=== PATIENT | female | born 1970 | race African-American/Black ===

== ENCOUNTER 2016-10-24 06:00 | Inpatient (IN) | payer MEDICARE, OTHER ==
--- NOTE | ~2016-10-24 | DS ---
Unit #: [id number] #: [id number] Patient: MICHAEL BAGLEY [id number] [address] [place], [place] [address] [id number] MR#: [id number] NAME: MICHAEL BAGLEY ROOM: 460 Age: 46 Sex: F Admission Date: 10/24/2016 : 1970 Discharge Date: 10/26/2016 Attending Physician: Jeffrey Aj M.D. Primary Care Physician: Joleen Snowden M.D. DISCHARGE SUMMARY ADMITTING DIAGNOSIS Left knee osteoarthritis. DISCHARGE DIAGNOSIS Left knee osteoarthritis. HOSPITAL COURSE On 10/24/2016 Ms. Bagley underwent a left total knee arthroplasty. She tolerated the procedure well. She was transported to the fourth floor, where she underwent physical therapy, medical management and anticoagulation therapy. She is doing well and is ready to be discharged. DISCHARGE CONDITION Stable. DISPOSITION Discharge home with home health. DISCHARGE MEDICATIONS 1. Finley 10/325 mg. 2. Coumadin 7.5 mg p.o. daily. FOLLOWUP/INSTRUCTIONS 1. Ms. Bagley is going to be discharged home with home health. 2. The patient is on Coumadin for DVT prophylaxis. PT/INR is to be drawn every Monday and . Please call the results to [phone] or fax to [phone], attention Aug. 3. Skin celsa are to be discontinued two weeks postoperative. Please apply Steri-Strips 1/4 inch apart. 4. White RAKESH hose are to be worn during the day and can be removed in the evening. 5. The patient can shower in one week and can drive after seen by Dr. Aj at the six-weeks postoperative appointment. 6. Physical therapy is to be done for active range of motion, strengthening and progressive ambulation. 7. The patient is on a CPM machine. This should be done twice a day for two hours and set at 0 to 80 degrees, increase 10 degrees of flexion daily. 8. Follow-up appointment with Dr. Aj is in six weeks. Please call our office for that appointment date and time. Dictated by... Nino PageAChristopheC. for Unit #: [id number] #: [id number] Patient: BAGLEY,ANQUINETTJudy Aj M.D. YANE/gz TD: 10/28/2016 08:04 JOB #: [id number] DISCHARGE SUMMARY X Francia Toth DISCHARGE SUMMARY
--- NOTE | ~2016-10-24 | BMI ---
[facility] Nutrition Therapy DATE: 10/25/16 Patient: MICHAEL MENDOZA Physician: PER Address: [address] [place] [address] Room/Bed: [address] [place] [address], Zip: [place] [address] Admit Date: 10/24/16 Date of : [birth year] Height: 4 11.5 Weight: 247 112.2 HIGH BMI NOTE: DX: No new H&P available; 46 y/o female admitted with OA left knee ANTHROPOMETRICS: Ht: 59.5", Wt: 112.2 kg, BMI: 49 DIET: Regular INTERVENTION: Restricted diet, meds/fluids per MD RECOMMENDATIONS: Consider changing diet to healthy heart to promote a gradual weight loss towards a healthy BMI range. Add consistent carb restriction if patient has hx of DM. Respectfully, Patrizia Rodriguez RD, LD Food and Nutritional Services [facility] cc: client file
--- NOTE | ~2016-10-24 | OR ---
Unit #: [id number] #: [id number] Patient: MICHAEL MENDOZA [id number] [address] [place], [place] [address] [id number] MR#: [id number] NAME: MICHAEL MENDOZA ROOM: [facility] Date of Procedure: 10/24/2016 Admission Date: 10/24/2016 Surgeon: Jeffrey Aj M.D. : 1970 Attending Physician: Jeffrey Aj M.D. Primary Care Physician: Joleen Snowden M.D. OPERATIVE REPORT PREOPERATIVE DIAGNOSIS Primary localized osteoarthritis of left knee. POSTOPERATIVE DIAGNOSIS Primary localized osteoarthritis of left knee. PROCEDURE PERFORMED Left total knee. ASSISTANTS Francia Toth . ANESTHESIA Adductor canal block plus general. ESTIMATED BLOOD LOSS 100 mL. INDICATIONS FOR PROCEDURE This is a 46-year-old with severe pain in the left knee. She has had pain for months. This got progressively worse. X-rays show [id number]. She has tried injections and they DESCRIPTION OF PROCEDURE The patient was brought to the holding room, given an adductor canal block and 2 g of Kefzol. Kefzol will be continued postop, but discontinued within 23 hours the start time of surgery. The patient was brought back to the operating room, given a general anesthetic. Tourniquet was placed around the left thigh. The left leg was prepped and draped in a sterile fashion. Tourniquet was inflated to 250. A straight anterior skin incision was made and the subcutaneous dissected away. Medial arthrotomy performed. Patella was slid to the side. Osteophytes were removed from the femur. An intramedullary guide was used and a 6-degree valgus cut was made on the distal femur. The femur was sized at a 2.5. The anterior-posterior cutting block was applied. Rotation was checked in the knee. Anterior posterior cuts were made along with the chamfer cuts. Proximal tibial cut was made using a 0-degree cutting block. It was sized at a 2. Any posterior condylar osteophytes were removed and the remaining meniscal fragments debrided. Posterior capsule and periosteum were injected with ropivacaine mixture and after this was done, the trial femur was applied. The trial tibia was applied with an 8 insert. The knee came to full extension and good stability in extension and flexion. Rotation Unit #: [id number] #: [id number] Patient: MENDOZA,ANQUINETTE of the tibia was marked and the external alignment guide showed appropriate alignment of the limb. The patella was grasped with 2 towel clips. It measured 20 mm thick, cut smooth at 13, and a 35 patella was the appropriate size. Three drill holes were made. Trial patella applied and it tracked properly. We then removed all the trials, used the drill and punch for the tibial tray. The knee was irrigated and dried while the cement was mixed and then all 3 components were cemented simultaneously. Once again, it was a size 2 tray, size 2.5 femur cruciate retaining and 35 patella from the [employer] Knee System. After the cement hardened, it was judged that the 8 insert was the appropriate thickness, so this was opened and applied. The tourniquet was released. Hemostasis was obtained and the wound was irrigated with a dilute Betadine solution. The rest of the ropivacaine mixture was injected and the wound was closed using the 0 Ethibond in the arthrotomy, 0 and 2-0 Vicryl in the subcutaneous, and celsa in the skin. Sterile dressing applied and the general anesthetic reversed. procurement assistant, Francia Toth was present throughout the entire case. Dictated by... Juanito Davis/dina TD: 10/24/2016 20:01 JOB #: [id number] OPERATIVE REPORT X Jeffrey Aj MD X PROCEDURE OPERATIVE NOTE
[~2016-10-24 06:00] MED LIST: ADVAIR 115-21 INH; ADVAIR HFA 115-12 GM; ALBUTEROL20 ml; ALDACTONE100 MG PO; HYDROCHLOROTHIA25 MG PO; K-DUR20 ME2 PO; LACTULOSE10 G/15 ML; LASIX PO; SPIRIVA18 MCG INH; VOLTAREN75 MG PO
[2016-10-24 06:54] LABS: URINE SOURCE CLEAN CATCH
[2016-10-24 07:05] LABS: URINE APPEARANCE CLOUDY; URINE BILIRUBIN NEG (NEG); URINE BLOOD 2+ (NEG); URINE COLOR YELLOW; URINE GLUCOSE NEG (NEG); URINE KETONE NEG (NEG); URINE LEUKOCYTE ESTERASE NEG (NEG); URINE NITRATE NEG (NEG); URINE PROTEIN NEG (NEG); URINE SPECIFIC GRAVITY 1.026 (1.003-1.035)
[2016-10-24 07:08] LABS: CULTURE INDICATED? YES; URINE BACTERIA AUWI 1+ (NEGATIVE); URINE SQUAMOUS EPITHELIAL CELL MOD /[HPF]
[2016-10-24 07:24] LABS: PROTHROMBIN TIME (PATIENT) 10.7 SECONDS (9.6-11.5)
[2016-10-24] MEDS ORDERED: FISH OIL 1,001000 M1 PO (09:02)
[2016-10-24] MEDS ORDERED: ESTRACE0.5 MG PO (09:03)
[2016-10-24] MEDS ORDERED: FLONASE 0.05% N16 G1 (09:03)
[2016-10-24] MEDS ORDERED: VITAMIN D350000 UNIT PO (09:04)
[2016-10-24] MEDS ORDERED: PHENTERMINE HCL30 MG PO (09:05)
[2016-10-24] MEDS ORDERED: CLARITIN10 M2 PO (14:04)
[2016-10-24] MEDS ORDERED: LIPITOR40 MG PO (14:11)
[2016-10-25 03:32] LABS: BASOPHIL% 0.2 % (0-2.5); HEMATOCRIT 35.5 % (35.0-45.0); HEMOGLOBIN 11.5 gm/dL (12.0-16.0); LYMPHOCYTE# 1.3 X10e3 (1.0-3.5); MEAN CELL VOLUME 98.7 FL (83-96); MEAN CORPUSCULAR HGB CONC 32.5 g/dL (30-36); MONOCYTE% 6.2 % (3.0-12.0); NEUTROPHIL# 14.2 X10e3 (1.5-7.1); NEUTROPHIL% 85.6 % (40-75); PLATELET COUNT 297 X10e3 (140-420); RED CELL DISTRIBUTION WIDTH 14.2 % (11.0-15.5); WHITE BLOOD COUNT 16.6 X10e3 (4.0-10.5)
[2016-10-25 03:42] LABS: DIFF IND NO
[2016-10-25 03:45] LABS: INR 1.2; PROTHROMBIN TIME (PATIENT) 13.1 SECONDS (9.6-11.5)
[2016-10-25 04:03] LABS: BLOOD UREA NITROGEN 12 mg/dL (9-23); BUN/CREATININE RATIO 13.33; CALCIUM SERUM 9.2 mg/dL (8.4-10.2); CARBON DIOXIDE 29 mmol/L (22-31); CHLORIDE 104 mmol/L (100-111); CREATININE SERUM 0.9 mg/dL (0.6-1.4); GLOM FILT RATE Estimated ABOVE60 mL/min (>60); GLUCOSE FASTING 114 mg/dL (70-110); POTASSIUM 4.3 mmol/L (3.5-5.1); SODIUM 140 mmol/L (135-145)
[2016-10-25 04:56] LABS: ANISOCYTOSIS SL; PLATELET ESTIMATE NORMAL (NORMAL)
[2016-10-26 04:21] LABS: HEMATOCRIT 34.1 % (35.0-45.0); HEMOGLOBIN 11.2 gm/dL (12.0-16.0); MEAN CORPUSCULAR HEMOGLOBIN 32.1 PG (28-34); MEAN CORPUSCULAR HGB CONC 32.8 g/dL (30-36); MEAN PLATELET VOLUME 8.3 FL (6.5-11.5); RED BLOOD COUNT 3.48 X10e (3.90-5.30); RED CELL DISTRIBUTION WIDTH 14.1 % (11.0-15.5); WHITE BLOOD COUNT 14.8 X10e3 (4.0-10.5)
[2016-10-26 04:35] LABS: INR 1.4; PROTHROMBIN TIME (PATIENT) 15.4 SECONDS (9.6-11.5)
[2016-10-26] MEDS ORDERED: NORCO 10-325 TA1 TAB PO (09:42)
[2016-10-26] MEDS ORDERED: COUMADIN7.5 MG PO (09:43)
== END 2016-10-26 11:00 | disposition home health service (06) | DRG 470 ==
LOC: CSUR 06:00 → CPACUOF 08:00 → C4B 11:03
PROVIDERS: Orthopaedic Surgery; Physician Assistant Medical
PROC: 0SRD0J9 Replacement of Left Knee Joint with Synthetic Substitute, Cemented, Open Approach (ICD-10-PCS; principal; 2016-10-24 08:00)
DX: M17.12 Unilateral primary osteoarthritis, left knee (principal); D72.829 Elevated white blood cell count, unspecified; F17.210 Nicotine dependence, cigarettes, uncomplicated; Z96.651 Presence of right artificial knee joint; Z88.8 Allergy status to other drugs, medicaments and biological substances
CPT/HCPCS: 80048; 81003; 85025; 85027; 85610; 87086; 94760; 97110; 97116; 97162; 97166; 97530; 97535; C1776; G8978-GP; G8979-GP; G8980-GP; G8987-GO; G8988-GO; G8989-GO; J0171; J0690; J0735; J1100; J1170; J1650; J1885; J2250; J2405; J2795; J3010

== ENCOUNTER → 2016-12-07 | Outpatient (CLI) | payer MEDICARE, OTHER ==
[~2016-12-07] MED LIST changes: +CLARITIN10 M2 PO; +COUMADIN7.5 MG PO; +ESTRACE0.5 MG PO; +FISH OIL 1,001000 M1 PO; +FLONASE 0.05% N16 G1; +LIPITOR40 MG PO; +NORCO 10-325 TA1 TAB PO; +PHENTERMINE HCL30 MG PO; +VITAMIN D350000 UNIT PO
--- NOTE | ~2016-12-07 | EKG ---
PATIENT: MENDOZA, [facility] UNIT #: [id number] Ventricular Rate: 83 BPM Atrial Rate: 83 BPM P-R Interval: 212 ms QRS Duration: 78 ms Q-T Interval: 396 ms QTC Calculation(Bezet): 465 ms P [place]: 56 degrees Calculated R [place]: -10 degrees Calculated T [place]: 4 degrees Diagnosis Line: Sinus rhythm with sinus arrhythmia with 1st degree Diagnosis Line: A-V block Diagnosis Line: Voltage criteria for left ventricular hypertrophy Diagnosis Line: ST elevation, consider early repolarization, Diagnosis Line: pericarditis, or injury Diagnosis Line: Abnormal ECG Diagnosis Line: When compared with ECG of 12-OCT-2016 08:41, Diagnosis Line: MA interval has increased Diagnosis Line: Non-specific change in ST segment in Anterior Diagnosis Line: leads Diagnosis Line: Confirmed by TO PADRON MD ([id number]) on 12/08/2016 Diagnosis Line: 7:55:50 PM INTERPRETING MD: VITO BRASHER
--- NOTE | ~2016-12-07 | US6 ---
[facility] A Service [facility] RADIOLOGY TEXT RESULTS PATIENT: MICHAEL MENDOZA LOCATION: [place] : [birth year] UNIT #: [id number] AGE: [address]: Joleen Snowden MD SEX: F ORDER DR: [id number] [facility] [address] [facility]. [place], [place] [address] [id number] O MR#: [id number] Acc #: [id number] NAME: MICHAEL MENDOZA : 1970 SEX: F STUDY DATE/TIME: 12/07/2016 10:21 UNIT: CGUS ROOM: STUDY DESCRIPTION: US Abdominal Limited Attending Physician: Joleen Snowden M.D. Referring Physician: Joleen Snowden M.D. Ordering Physician: Joleen Snowden M.D. Primary Care Physician: Joleen Snowden M.D. MEDICAL IMAGING REPORT This report is preliminary unless electronic signature is present EXAM Right upper quadrant abdominal ultrasound INDICATION Cirrhosis. Observation for hepatocellular carcinoma. PROCEDURE Bloom-scale and Doppler imaging of the right upper quadrant of the abdomen. COMPARISON 08/03/2016 FINDINGS Liver measures 13.8 cm. Right kidney measures 10.8 cm. No hydronephrosis. Common duct measures 5 mm. The gallbladder is not well seen on this study but shows no definite abnormality. IMPRESSION Technically difficult study. No definite acute findings are seen in the right upper quadrant. Dictated by... Galen Romo M.D. THIS IS AN ELECTRONICALLY VERIFIED REPORT Galen Romo M.D. at 12/08/2016 6:51 AM EED/arnold TD: 12/07/2016 13:32 JOB #: [id number] MEDICAL IMAGING REPORT [facility] A [facility] RADIOLOGY TEXT RESULTS PATIENT: MICHAEL MENDOZA LOCATION: [facility] : 72 UNIT #: [id number] AGE: [address]: Joleen Snowden MD SEX: F ORDER DR: Page 1 of 1 COPY
== END | disposition home or self-care (01) ==
LOC: CGUS 09:54
DX: K74.60 Unspecified cirrhosis of liver (principal); R00.2 Palpitations; R00.0 Tachycardia, unspecified; I50.9 Heart failure, unspecified
CPT/HCPCS: 76705; 93005; 93306

== ENCOUNTER → 2017-02-22 | Outpatient (CLI) | payer MEDICARE, OTHER ==
--- NOTE | ~2017-02-22 | CR243 ---
[facility] A Service of [facility] RADIOLOGY TEXT RESULTS PATIENT: MICHAEL MENDOZA LOCATION: [facility] : 72 UNIT #: [id number] AGE: [address]: Joleen Snowden MD SEX: F ORDER DR: [id number] [facility] [address] [facility] [place], [place] [address] [id number] O MR#: [id number] Acc #: [id number] NAME: MICHAEL MENDOZA : 1970 SEX: F STUDY DATE/TIME: 02/22/2017 23:25 UNIT: [facility] ROOM: STUDY DESCRIPTION: CR Thoracic Spine 3 Views Attending Physician: Joleen Snowden M.D. Ordering Physician: Joleen Snowden M.D. Primary Care Physician: Joleen Snowden M.D. MEDICAL IMAGING REPORT This report is preliminary unless electronic signature is present EXAM Thoracic spine series HISTORY Mid upper back pain intermittently over the past 2 weeks TECHNIQUE/COMPARISON 3 views of the thoracic spine were obtained and correlated with a chest x-ray from 10/12/2016 FINDINGS There is a mild lower thoracic levoscoliosis unchanged. There are moderate degenerative changes of the lower thoracic discs. Vertebral body height is preserved with no evidence of fracture either acutely or chronically. No destructive bone lesions are seen. The pedicles are intact at each level and no paraspinous masses are noted. IMPRESSION Moderate lower thoracic degenerative disc disease. Lower thoracic scoliosis. No acute findings. Dictated by... José Miguel Felix M.D. THIS IS AN ELECTRONICALLY VERIFIED REPORT José Miguel Felix M.D. at 02/23/2017 3:45 PM RLF/to TD: 02/23/2017 12:26 JOB #: [id number] MEDICAL IMAGING REPORT Page 1 of 1 COPY
== END | disposition home or self-care (01) ==
LOC: CRAD 23:15
DX: M54.9 Dorsalgia, unspecified (principal); M51.34 Other intervertebral disc degeneration, thoracic region; M41.9 Scoliosis, unspecified
CPT/HCPCS: 72072